=== PATIENT | female | born 1975 | race Caucasian/White ===

== ENCOUNTER → 2018-12-09 | Outpatient (CLI) | payer OTHER, SELFPAY ==
--- NOTE | 2018-12-09 08:17 | CT_ITS ---
STUDY: CT MAXILLOFACIAL SINUSES REASON FOR EXAM: Female, 43 years old. Sinusitis RADIATION DOSAGE (If Supplied By Facility): CTDIvol = ( 33.45 ) mGy, DLP = ( 772.18 ) mGycm TECHNIQUE: The patient was scanned in a multi detector CT scanner. High resolution axial imaging was performed without the administration of intravenous contrast material. Sagittal and coronal images were reconstructed. Individualized dose optimization techniques were used for this CT. COMPARISON: None. FINDINGS: FRONTAL SINUSES: Normal aeration, without mucosal inflammatory disease. ETHMOIDAL SINUSES: Normal aeration, without mucosal inflammatory disease. MAXILLARY SINUSES: Normal aeration, without mucosal inflammatory disease. SPHENOIDAL SINUSES: Normal aeration, without mucosal inflammatory disease. There is patency of the bilateral maxillary infundibuli with normal uncinate processes, ethmoid bullae, and hiatus semilunaris. There are paradoxical curvature of the bilateral middle turbinates. Normal bilateral inferior turbinates. There is a left sided nasal septal deviation with a left sided nasal septal spur. There is patency of the bilateral nasal airways. The visualized osseous structures are normal. The visualized bilateral orbital contents are normal. CT/Sinus/Facial Bone IMPRESSION: 1. No CT evidence of acute or chronic sinusitis. 2. Patent ostiomeatal units bilaterally. 3. Peroneal ossicle middle turbinates bilaterally. 4. Slight deviation the nasal septum to the left with a bony spur. Electronically Signed: Andrey Owusu MD at 8:38 EDT Tel , Service support ,
== END | disposition home or self-care (01) ==
LOC: CT 08:14
PROVIDERS: Family Provider Nurse Practitioner Family; PCP Nurse Practitioner Family; Referring Provider Otolaryngology; Visit Provider Otolaryngology
DX: J32.9 Chronic sinusitis, unspecified (principal)
CPT/HCPCS: 70486

== ENCOUNTER 2022-11-28 18:32 | Emergency (ER) | payer OTHER, SELFPAY ==
[2022-11-28 18:33] VITALS: BP 149/87; PULSE 108; RESP 14; TEMP 36.6; O2SAT 99; BMI 42.8
--- NOTE | 2022-11-28 20:05 | RAD_ITS ---
INDICATION: chest pain EXAMINATION/TECHNIQUE: X-RAY - XR Chest 1 View COMPARISON: 10/18/2015 FINDINGS: LIFE-SUPPORT AND LINES: 1. None HEART AND VESSELS: The cardiac silhouette, pulmonary vasculature have normal appearance. No evidence of congestive failure. LUNGS AND PLEURAL SPACES: Lungs are clear. No focal infiltrate, consolidation or effusions. No evidence of pneumothorax. No pulmonary mass is noted. MEDIASTINUM AND HILAR REGIONS: No masses adenopathy noted. No areas of calcification. Visualized upper airway is normal in position. BONY ELEMENTS: No acute bony changes noted. RAD/Chest 1 View (Portable) IMPRESSION: 1. No evidence of acute cardiopulmonary process Electronically Signed: Andrey Marie MD at 20:16 EDT ,
[2022-11-28 20:32] VITALS: BP 129/73; PULSE 86; RESP 14; O2SAT 98
[2022-11-28 20:33] VITALS: O2SAT 98
[2022-11-28 20:35] LABS: Absolute Lymphocyte Count 2.27 X10^3/uL (0.83-4.51); Absolute Neutrophil Count 8.5 X10^3/uL (2.0-7.7); Basophil# 0.07 X10^3/uL; Basophil% 0.6 % (0-1); Eosinophil# 0.08 X10^3/uL; Eosinophils% 0.7 % (0-5); Hematocrit 40.5 % (37-47); Hemoglobin 13.7 g/dL (12.0-15.0); Lymphocyte # 2.27 X10^3/ul (0.83-4.51); Lymphocyte % 19.5 % (19-41); Mean Corp Hgb Conc 33.8 g/dL (32-36); Mean Corpuscular Hgb 32.2 pg (27.0-32.0); Mean Corpuscular Volume 95.1 fL (81-99); Mean Platelet Vol. 9.9 fl (6.2-12.0); Monocyte# 0.71 X10^3/uL; Monocyte% 6.1 % (0-10); NRBC Flagged by Analyzer 0 % (0-5); Neutrophil # 8.45 X10^3/uL (2.7-7.7); Neutrophil % 72.8 % (47-70); Platelet Count 308 K/mm3 (150-450); RBC Distribution Width CV 13.2 % (11.6-14.6); RBC Distribution Width SD 46.5 fl (35.1-43.9); Red Blood Count 4.26 M/mm3 (4.2-5.4); White Blood Count 11.6 K/mm3 (4.4-11.0)
--- NOTE | 2022-11-28 20:39 | EDS_ITS ---
HPI History of Present Illness Chief Complaint: Palpitations Detail of Chief Complaint: Chest pressure Informant: patient Onset/Context/Timing Onset: Today Narrative Narrative: Patient presents with a episode of squeezing in her left upper chest that occurred at noon today. She is seen at approximately 8:30 PM. She states episode lasted about 20 minutes and said that she never felt anything like that before. She states her heart was pounding hard but not irregularly. She did not feel short of breath. She did not feel as if she was going to pass out. She checked her blood pressure this evening and it was still elevated so she presents for evaluation. [facility] Medical History Hypothyroid Home Medications albuterol sulfate 90 mcg/actuation aerosol inhaler (ProAir HFA) 2 puff inhalation Q6H PRN PRN Sob &/Or Wheezing 10/18/15 [History Last Taken Unknown] primidone 50 mg tablet 50 mg PO BID 10/18/15 [History Last Taken Unknown] Triamcinolone 0.1% Cream [Kenalog] 1 applic topical BID 12/15/16 [History Last Taken Unknown] cyanocobalamin (vitamin B-12) 1,000 mcg tablet (Vitamin B-12) 1,000 mcg PO DAILY 12/15/16 [History Last Taken Unknown] etodolac 400 mg tablet (Lodine) 400 mg PO DAILY 12/15/16 [History Last Taken Unknown] gabapentin 600 mg tablet,extended release 24 hr (Gralise) 600 mg PO DAILY 12/15/16 [History Last Taken Unknown] levothyroxine 50 mcg tablet 50 mcg PO DAILY 12/15/16 [History Last Taken Unknown] montelukast 10 mg tablet 10 mg PO DAILY 12/15/16 [History Last Taken Unknown] venlafaxine 150 mg capsule,extended release 24 hr 150 mg PO DAILY 12/15/16 [History Last Taken Unknown] Dulara Inhaler 2 puff inhalation BID 01/28/17 [History Last Taken Unknown] Allergy/AdvReac Type Severity Reaction Status Date / Time latex AdvReac Severe Itching Verified 11/28/22 18:33 oxycodone HCl [From Percocet] AdvReac Mild Hives Verified 11/28/22 18:33 Social History Smoking Status: Current every day smoker tobacco type: cigarettes ROS ROS ED Constitutional Constitutional ED: Denies chills or fever(s) Eyes Eyes: Denies change in vision or discharge from eye(s) ENT ENT ED: Denies discharge from eye(s), rhinorrhea or sore throat Cardiovascular Cardiovascular: Reports chest pain; Denies palpitations Respiratory/Chest Respiratory/Chest: Denies cough or dyspnea Gastrointestinal Gastrointestinal: Denies abdominal pain, nausea or vomiting Musculoskeletal Musculoskeletal: Denies back pain or extremity pain Integumentary Denies Abrasions or rash Neurologic Neurologic: Denies headache(s) or weakness Psychiatric Psychiatric: Denies anxiety or depression Allergic/Immunologic Allergic/Immunologic ED: Denies lip swelling or urticaria EXAM Physical Exam Const Vital Signs: 11/28/22 18:33 11/28/22 20:30 11/28/22 20:32 Temperature 98 F Temperature Source Oral Pulse Rate 108 H 86 Respiratory Rate 14 14 Respiratory Effort Normal Non-Labored Blood Pressure 149/87 H 129/73 H Blood Pressure Mean 107 91 Pulse Ox 99 98 Oxygen Delivery Method Room Air Room Air 11/28/22 20:33 11/28/22 22:02 Temperature Temperature Source Pulse Rate 78 Respiratory Rate 12 Respiratory Effort Blood Pressure 129/78 H Blood Pressure Mean Pulse Ox 98 98 Oxygen Delivery Method Room Air Positive well nourished and well developed General Appearance ED: well developed HEENT Reports normocephalic and head/scalp atraumatic Eyes PERRL and EOMs intact bilaterally Neck supple Chest Wall inspection of chest normal and palpation of chest normal Resp normal respiratory effort and clear to auscultation bilaterally Cardio regular rate and regular rhythm GI non-tender Palpation: soft Back/Spine no CVA tenderness Extremity normal to inspection Neuro oriented x3 and no sensory deficits noted Sensorium / Orientation: alert Motor Exam: strength 5/5 throughout Psych mental status grossly normal Skin no rashes or lesions noted Heart Score History: Slightly/Non-Suspicious ECG: Normal Age: >45 - <65 years Risk Factors: No Risk Factors Troponin: </= Normal Limit Score: 1 MDM MDM MDM Narrative Medical decision making narrative: Patient placed on investor relations associate. Labwork obtained to evaluate for leukocytosis, anemia, and electrolyte derangement. EKG obtained to evaluate for cardiac arrhythmia/ischemia. Chest x-ray obtained to evaluate for acute lung pathology, cardiac size, or mediastinal abnormality. History & Record Review Discussion w/independent historian: Patient and Significant other Additional record(s) reviewed:: Prior labs Lab Data Attestation: I reviewed the patient's lab results. Labs: Laboratory Results - last 24 hr 11/28/22 11/28/22 20:23 20:32 WBC 11.6 H RBC 4.26 Hgb 13.7 Hct 40.5 MCV 95.1 MCH 32.2 H MCHC 33.8 RDW Std Deviation 46.5 H RDW Coeff of Autumn 13.2 Plt Count 308 MPV 9.9 Immature Gran % (Auto) 0.300 Neut % (Auto) 72.8 H Lymph % (Auto) 19.5 [place] % (Auto) 6.1 Eos % (Auto) 0.7 Baso % (Auto) 0.6 Absolute Neuts (auto) 8.5 H Absolute Lymphs (auto) 2.27 Nucleated RBC % 0 Sodium 137 Potassium 3.7 Chloride 107 Carbon Dioxide 26.0 Anion Gap 4 L BUN 10 Creatinine 0.99 Estim Creat Clear Calc 49.37 Est GFR (MDRD) Af Amer 77 Est GFR (MDRD) Non-Af 63 BUN/Creatinine Ratio 10.1 Glucose 119 H Calcium 8.8 Troponin I High Sens < 3 L TSH 1.38 Radiography Chest X-Ray - ED: 1 View, Read by ED Physician, Normal, Heart, Lungs and Mediastinum Diagnostic Testing: Clinical Impression(s) from Imaging Studies Chest X-Ray 11/28/22 20:05 IMPRESSION: 1. No evidence of acute cardiopulmonary process Electronically Signed: Andrey Marie MD at 20:16 EDT , EKG Initial EKG: Attestation: I personally reviewed and interpreted this EKG as follows: Interpretation: Sinus Rhythm (Sinus at 104 with no acute ischemia.) Treatment and Re-Evaluation :: Patient has had no further symptoms while in the emergency room. No arrhythmias noted on investor relations associate. CBC reveals a white count of 11.6 with 72% neutrophils. Hemoglobin normal at 13.7. Chemistry studies are unremarkable. T roponin is less than 3 and TSH is normal at 1.38. Portable chest x-ray per my interpretation reveals no acute findings. Radiology interpretation reviewed and agrees. EKG reveals no acute ischemia. With patient having a brief episode of squeezing pain 8 hours prior to evaluation and negative work-up at this time with no recurrent symptoms I do feel she can be safely discharged home. We discussed appropriate outpatient follow-up as well as return instructions. Discharge Plan Triage Chief Complaint: Palpitations ED Provider: Lali Patino Dx/Rx/DC Orders Clinical Impression: Chest pain Instructions: ED Chest Pain, Uncertain Cause Prescriptions: No Action primidone 50 MG tablet 50 mg PO BID albuterol sulfate [ProAir HFA] 1 PUFF inhaler 2 puff inhalation Q6H PRN PRN (Reason: Sob &/Or Wheezing) venlafaxine 150 MG capsule 150 mg PO DAILY cyanocobalamin (vitamin B-12) [Vitamin B-12] 1,000 MCG tablet 1,000 mcg PO DAILY levothyroxine 50 MCG tablet 50 mcg PO DAILY etodolac [Lodine] 400 MG tablet 400 mg PO DAILY montelukast 10 MG tablet 10 mg PO DAILY gabapentin [Gralise] 600 MG tablet extended release 24 hr 600 mg PO DAILY Triamcinolone 0.1% Cream [Kenalog] 1 APPLIC Tube 1 applic topical BID Dulara Inhaler 2 puff inhalation BID Primary Care Provider: Nena Gary NP Referrals: Nena Gary NP, MACHINE SET UP OPERATOR-C [Primary Care Provider] - 1 Week Disposition Disposition: Home, Self Care
[2022-11-28 21:03] LABS: Anion Gap 4 (5-15); BUN 10 mg/dL (7-18); BUN/Creat Ratio 10.1 RATIO (10-20); Calcium,Total 8.8 mg/dL (8.5-10.1); Chloride 107 mmol/L (98-107); Creatinine, Serum 0.99 mg/dL (0.55-1.02); EST Glomerular Filtration Rate 63 mL/min (>60); Est Glom Filt Rate - Afr Amer 77 mL/min (>60); Estimated Creatinine Clearance 49.37 ml/min; Glucose 119 mg/dL (74-106); Potassium 3.7 mmol/L (3.5-5.1); Sodium Level 137 mmol/L (136-145); Troponin-I HS (w/2H Reflex) < 3 pg/mL (3.0-54.0)
[2022-11-28 21:20] LABS: Thyroid Stim Hormone (TSH) 1.38 uIU/mL (0.358-3.74)
[2022-11-28 22:02] VITALS: BP 129/78; PULSE 78; RESP 12; O2SAT 98
[2022-11-28 22:32] LABS: Reflex Troponin-HS? (from REC) Y
== END 2022-11-28 22:14 | disposition home or self-care (01) ==
PROVIDERS: Emergency Provider Emergency Medicine; PCP Nurse Practitioner Family; Visit Provider Emergency Medicine
DX: R00.2 Palpitations (principal); R07.9 Chest pain, unspecified; F17.210 Nicotine dependence, cigarettes, uncomplicated; E03.9 Hypothyroidism, unspecified; Z79.899 Other long term (current) drug therapy
CPT/HCPCS: 71045; 80048; 84443; 84484; 85025; 93005; 96365; 99284; A4216

== ENCOUNTER → 2024-08-02 | Outpatient (CLI) | payer OTHER, SELFPAY ==
--- NOTE | 2024-08-02 08:23 | NEURO ---
NCS and/or EMG Patient Report Ordering Doctor: Royce Bass DATE OF SERVICE: 08/02/24 Clinical Summary: 48 year old female patient with symptoms of numbness in both hands. Nerve Conduction Studies Summary: Nerve conduction studies of the upper extremities were performed. The median-D2 SNAP distal latency was prolonged bilaterally. The right median-APB CMAP distal latency was prolonged. Needle Examination Summary: Needle examination of select muscles of the bilateral upper extremities was normal. Impression: This is an abnormal bilateral upper extremity study. There is electrodiagnostic evidence of the following - 1) Moderate, right median mononeuropathy at the wrist (carpal tunnel syndrome), with sensory and motor fiber demyelination 2) Mild, left median mononeuropathy at the wrist (carpal tunnel syndrome), with sensory fiber demyelination Multi Select Codes Neurology Neurology Interp Codes: 10561-79 Musc test done w/n test comp (interp) (2) and 79741-98 Nrv cndj test 11-12 studies (interp)
== END | disposition home or self-care (01) ==
PROVIDERS: PCP Nurse Practitioner Family
DX: G56.03 Carpal tunnel syndrome, bilateral upper limbs (principal)
CPT/HCPCS: 95886; 95912